=== PATIENT | female | born 1995 | race Caucasian/White ===

== ENCOUNTER 2017-10-31 17:17 | Inpatient (IN) | payer BC ==
[~2017-10-31] VITALS: Ht 167.6 cm; Wt 93.6 kg
[2017-10-31] VITALS (7 sets, daily range): BP systolic 117–140; BP diastolic 71–85
[~2017-10-31 17:17] MED LIST: ALPRAZOLAM0.25 M2 PO; FLEXERIL10 MG PO; NAPROSYN375 MG PO; NAPROSYN500 MG PO; NORCO 5/3251 TABLET PO; SERTRALINE HCL50 MG PO; TRAZODONE HCL50 MG PO
[2017-10-31 18:27] LABS: BASOPHIL (%) 0.3 % (0-1); EOSINOPHIL (%) 0.7 % (0-5); EOSINOPHIL COUNT 0.1 K/uL (0-0.3); HEMATOCRIT 34.6 % (36.0-46.0); HEMOGLOBIN 11.3 G/DL (11.9-15.5); IMMATURE GRANULOCYTE (%) 0.4 % (0.0-0.7); LYMPHOCYTE (%) 19.2 % (15-42); LYMPHOCYTE COUNT 2.2 K/uL (1.0-2.8); MCH 28.3 PG (29.0-34.0); MCHC 32.7 G/DL (30.0-36.0); MCV 86.7 FL (83-99); MONOCYTE (%) 8.1 % (3-12); MONOCYTE COUNT 0.9 K/uL (0-0.8); NEUTROPHIL (%) 71.3 % (45-76); NEUTROPHIL COUNT 8.1 K/uL (1.8-6.4); PLATELET COUNT 225 K/uL (156-360); RBC DIS.WIDTH-CV 14.4 % (11.8-14.6); RBC DIS.WIDTH-SD 45.3 % (39-53); RED BLOOD COUNT 3.99 M/uL (3.80-5.20); WHITE BLOOD COUNT 11.4 K/uL (4.1-10.2)
[2017-11-01] VITALS (31 sets, daily range): BP systolic 110–154; BP diastolic 59–104
[2017-11-01] MEDS ORDERED: PRENATAL TABLE1 EACH PO (11:55)
[2017-11-01] MEDS ORDERED: VENTOLIN HFA18 GM IH (11:56)
[2017-11-02] VITALS (21 sets, daily range): BP systolic 114–142; BP diastolic 62–98
[2017-11-02] MEDS ORDERED: IBUPROFEN800 MG PO (12:55)
[2017-11-03 22:29] VITALS: BP 127/72
[2017-11-04 07:32] VITALS: BP 121/78
[2017-11-04 14:57] VITALS: BP 126/75
== END 2017-11-04 18:29 | disposition home or self-care (01) | DRG 775 ==
LOC: LDRP-OP 17:17 → 2WEST 17:19 → LDRP-OP 11-19 11:18
PROVIDERS: Advanced Practice Midwife
DX: O71.4 Obstetric high vaginal laceration alone (principal); O48.0 Post-term pregnancy; Z3A.41 41 weeks gestation of pregnancy; Z37.0 Single live birth; O76 Abnormality in fetal heart rate and rhythm complicating labor and delivery; Z87.891 Personal history of nicotine dependence
CPT/HCPCS: 85025; C1755; G0378; J0595; J3010; J7120